=== PATIENT | female | born 1985 | race Caucasian/White ===

== ENCOUNTER → 2018-01-22 | Outpatient (CLI) | payer BC ==
[2017-12-26 14:24] VITALS: BP 108/73
[~2018-01-22] MED LIST: BUSP10TA PO; CIPR500T94 PO; CYAN1TAB28 PO; FURO-69 PO; HYDR-2758 PO; HYDR1POW19 MC; IBUP800T19 PO; LANS15CA78 PO; LEVO25TA4 PO; ONDA4TAB7 PO; ONDA8TAB9 PO; QUET25TA PO; THYR15TA PO; TRAM50TA PO; VORT10TA PO
--- NOTE | 2018-01-22 18:31 | CARD ---
MR#: [id number] Date of Study: 01/22/2018 Ordering Physician: SALAZAR GU, Referring Physician: SALAZAR GU, Brenda: STEWART Sinclair APPROVED REPORT INDICATION Dyspnea Chest Pain Reason : Patient complained of shortness of breath PROCEDURE The patient underwent an Exercise Stress Test using the Modified [place]o Protocol. Blood pressure, hear t rate, and EKG were monitored. An Echocardiogram was performed by radiography technician in four stages in quad fashion. At peak stress four se lected images were obtained and placed side by side with resting images for comparison. STRESS ECHO FINDINGS The resting Echocardiogram showed normal left ventricular systolic contractility with an estimated Ej ection Fraction of about 60 %. The Resting Echocardiogram showed normal augmentation of myocardial wall segments using a 16 segment model. Test Type: Exercise Test Indications: SOB, Chest Pain Cardiac History and Allergies: No known cardiac Resting Blood Pressure: 114mmHg Pretest Chest Pain: No chest pain POST EXERCISE Reason for Termination: Patient request, Fatigue, Dyspnea Target HR: No Max HR: 186 bpm 91% of Maximum Predicted HR: 187 bpm Exercise duration: 7:58 min:sec, 3 Stage Exercise capacity: 10.0METs Max Blood Pressure: 139mmHg Blood Pressure response to exercise: Normal blood pressure response during stress. Chest Pain: No. INTERPRETATION Stress EKG Conclusion: No evidence of stress induced EKG changes to suggest ischemia. STRESS ECG Stress EKG shows no significant changes. RECOMMENDATIONS Due to patient's nausea, non-specific ST/T changes and submaximal stress test, would recommend regade nosine myocardial perfusion study. Preliminary Notification Critical Value: No <Conclusion> No evidence of stress induced EKG changes to suggest ischemia at submaximal stress. Average exercise capacity at 9.2 mets achieved. Normal resting echo and wall motion. EF 55% Stress images were not able to be obtained due to technical issues. Signed by : Salazar Gu, Electronically Approved : 01/22/2018 18:31:21
== END | disposition home or self-care (01) ==
LOC: ECHO 09:54
PROVIDERS: ATTEND Internal Medicine Cardiovascular Disease
DX: R07.9 Chest pain, unspecified (principal); R06.02 Shortness of breath
CPT/HCPCS: 93307; 93350

== ENCOUNTER → 2021-03-23 | Outpatient (CLI) | payer BC ==
[2017-12-26 14:24] VITALS: BP 108/73
[~2021-03-23] MED LIST changes: +HYDR-2155 PO; -HYDR-2758 PO
--- NOTE | 2021-03-23 14:41 | RAD ---
CT NECK SOFT TISSUE WITHOUT CONTRAST History:Reason: POST STRANGULATION SUNDAY, BRUISE ON LEFT SIDE, PAINFUL TO SWALLO / Spl. Instructions : / History: Technique: CT imaging was performed of the neck soft tissues without intravenous contrast. Coronal an d sagittal reconstructions were performed. Exposure: One or more of the following individualized dose reduction techniques were utilized for thi s examination: 1. Automated exposure control 2. Adjustment of the mA and/or kV according to patient size 3. Use of iterative reconstruction technique. Comparison: None Findings: Normal appearance of the bilateral submandibular and parotid glands. Unremarkable thyroid gland. No pathologic lymphadenopathy. Imaged lung apices are unremarkable. Left maxillary sinus because retention cyst. Image mastoid air cells are clear. Imaged orbits and int racranial contents are unremarkable. No acute fracture. Impression: 1. No acute pathology within the neck soft tissues. Electronically signed by: Chele Moore DO (03/23/2021 2:38 PM) [id number]
== END ==
LOC: CT 13:49
PROVIDERS: ATTEND Family Medicine
DX: T71.9XXA Asphyxiation due to unspecified cause, initial encounter (principal); N83.292 Other ovarian cyst, left side
CPT/HCPCS: 70490